=== PATIENT | female | born 1960 | race Caucasian/White ===

== ENCOUNTER → 2020-11-19 01:17 | Outpatient (CLI) | payer BC, SELFPAY ==
[2020-11-20 07:19] LABS: SARS-CoV-2 RNA PCR Negative
== END ==
PROVIDERS: PCP Internal Medicine; Visit Provider Internal Medicine
DX: Z20.822 Contact with and (suspected) exposure to COVID-19 (principal); R09.89 Other specified symptoms and signs involving the circulatory and respiratory systems
CPT/HCPCS: C9803; U0003; U0005

== ENCOUNTER 2021-04-29 08:24 | Outpatient (CLI) | payer BC, SELFPAY ==
--- NOTE | ~2021-04-29 | MM_ITS ---
EXAMINATION: MM screening [facility] BI w hollie HISTORY: Screening TECHNIQUE: Craniocaudal and mediolateral oblique 3-D tomosynthesis images were obtained and synthetic 2-D images were generated. CAD analysis was submitted and interpreted. COMPARISON: Comparison to multiple prior studies sequentially, with oldest reviewed study dated 02/2015. BREAST PARENCHYMAL COMPOSITION: There are scattered areas of fibroglandular density. FINDINGS: There is no evidence of suspicious mass, calcification, or architectural distortion to sugg est malignancy in either breast. There has been no suspicious interval change. IMPRESSION: 1. No mammographic evidence of malignancy. 2. Recommend routine screening mammography in one year. BI-RADS Category 1: Negative Reviewed, dictated and finalized at location A. TY COMP[employer]ION
== END 2021-04-29 08:25 | disposition home or self-care (01) ==
PROVIDERS: PCP Internal Medicine; Visit Provider Nurse Practitioner
DX: Z12.31 Encounter for screening mammogram for malignant neoplasm of breast (principal)
CPT/HCPCS: 77063; 77067

== ENCOUNTER 2022-04-09 17:28 | Emergency (ER) | payer OTHER, BC, SELFPAY ==
--- NOTE | ~2022-04-09 | XR_ITS ---
XR ankle RT min 3V 04/09/2022 18:05 Indication: Right ankle pain with swelling Procedure: 4 views right ankle Comparison: No prior studies for comparison. Findings: There is a minimally displaced transversely oriented distal fibular fracture. There is mode rate adjacent soft tissue swelling. Ankle mortise intact. There are degenerative calcaneal enthesophy erik. Talar dome is unremarkable. Osteopenia. Impression: 1: Mildly displaced distal fibular fracture, transversely oriented. Reviewed, dictated and finalized at location A. 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
[2022-04-09 17:43] VITALS: BP 157/104; PULSE 97; RESP 12; TEMP 36.8; O2SAT 98
--- NOTE | 2022-04-09 18:20 | ED.LOWEXIN ---
HPI - Extremity Injury (Lower) General Chief Complaint: Extremity Injury, Lower Stated Complaint: right ankle pain Time Seen by Provider: 04/09/22 18:09 Source: patient Mode of arrival: ambulatory Limitations: no limitations History of Present Illness HPI Narrative: Patient presents today complaining of right ankle pain. Patient states she stepped on to an approximately 3 in platform and felt a pop in her ankle around 3:30 p.m.. Denies numbness or tingling in the leg or foot. She is pain-free at rest, but this increases significantly with weight-bearing or movement. She has tried no medication or ice prior to arrival. Patient works at [employer] Medications Medication Instructions Recorded Confirmed multivitamin 1 tablet PO DAILY 01/02/19 04/09/22 aspirin 81 mg tablet,delayed 81 mg PO DAILY 01/04/19 04/09/22 release (Aspir-) Allergies Allergy/AdvReac Type Severity Reaction Status Date / Time No Known Allergies Allergy Verified 04/09/22 17:49 Review of Systems Review of Systems: CONSTITUTIONAL: Denies body aches, fever, chills, or sweats. EYES: Denies visual changes, redness, or discharge. ENT: Denies rhinorrhea, congestion, sore throat, or otalgia. CARDIOVASCULAR: Denies chest pain, palpitations, or edema. RESPIRATORY: Denies cough or dyspnea. GASTROINTESTINAL: Denies abdominal pain, nausea, vomiting, or diarrhea. GENITOURINARY: Denies dysuria or hematuria. SKIN: Denies rash, itching, or wounds. MUSCULOSKELETAL: Denies back pain, or myalgia.+ right ankle injury NEUROLOGIC: Denies headache, numbness, tingling, or weakness. PSYCH: Denies depression or anxiety. [facility] Past Medical History Medical History Asthma with acute exacerbation Chest pain Otitis of both ears Surgical History Surgical History S/P hysterectomy Family History Family History Mother Hypertension Family history of arthritis Family history of malignant neoplasm of thyroid Father Hypertension Grandparent Family history of malignant neoplasm of ovary Social History Social History Second hand tobacco smoke exposure: No Alcohol intake: current Alcohol use details: social Substance use: never Substance use type: does not use Comments At time of signature, I have reviewed and agree with nursing past medical, surgical, social and family history unless otherwise noted. Please see nursing chart for further information. There is no relevant family history pertinent to the presenting complaint Exam Narrative: GENERAL: Well-appearing, well-nourished, and in no acute distress. HEAD: Normocephalic, atraumatic. EYES: EOMI. No redness or drainage. Conjunctivae normal. ENT: Mucous membranes pink and moist. NECK: Normal AROM. CHEST: No respiratory distress. EXTREMITIES: Right ankle: Tenderness and mild to moderate edema to the lateral malleolus. No tenderness medially or posteriorly. No tenderness to the foot. Distal sensation intact in all 5 toes. Capillary refill normal. Pedal pulse normal. Almost full range of motion of the ankle with increased pain laterally. SKIN: Warm, dry, no rash. Capillary refill normal. Normal skin turgor. NEURO: No focal deficits. Alert and oriented x3. Gait steady but painful. PSYCH: Normal affect. No signs of depression or anxiety. Course Course Level of Care: Express Care Visit Vital Signs Vital signs: Vital Signs Temperature 98.2 F 04/09/22 17:43 Pulse Rate 97 04/09/22 17:43 Respiratory Rate 12 04/09/22 17:43 Blood Pressure 157/104 H 04/09/22 17:43 Pulse Oximetry 98 04/09/22 17:43 Oxygen Delivery Room Air 04/09/22 17:43 Temperature 98.2 F 04/09/22 17:43 Pulse Rate 97
== END 2022-04-09 19:24 | disposition home or self-care (01) ==
PROVIDERS: Emergency Provider Nurse Practitioner; PCP Family Medicine
DX: S82.831A Other fracture of upper and lower end of right fibula, initial encounter for closed fracture (principal); Z79.82 Long term (current) use of aspirin; X50.0XXA Overexertion from strenuous movement or load, initial encounter
CPT/HCPCS: 29515; 73610; 99214; G0463

== ENCOUNTER → 2022-07-28 16:03 | Outpatient (CLI) | payer BC, SELFPAY ==
--- NOTE | ~2022-07-28 | MM_ITS ---
EXAMINATION: MM screening [facility] BI w hollie HISTORY: Screening TECHNIQUE: Craniocaudal and mediolateral oblique 3-D tomosynthesis images were obtained and synthetic 2-D images were generated. CAD analysis was submitted and interpreted. COMPARISON: Comparison to multiple prior studies sequentially, with oldest reviewed study dated 02/2015. BREAST PARENCHYMAL COMPOSITION: There are scattered areas of fibroglandular density. FINDINGS: There is no evidence of suspicious mass, calcification, or architectural distortion to sugg est malignancy in either breast. There has been no suspicious interval change. IMPRESSION: 1. No mammographic evidence of malignancy. 2. Recommend routine screening mammography in one year. BI-RADS Category 1: Negative Reviewed, dictated and finalized at location A.
== END ==
PROVIDERS: PCP Family Medicine; Visit Provider Family Medicine
DX: Z12.31 Encounter for screening mammogram for malignant neoplasm of breast (principal)
CPT/HCPCS: 77063; 77067

== ENCOUNTER 2022-12-20 14:10 | Observation (INO) | payer BC, SELFPAY ==
[2022-12-20] VITALS (14 sets, daily range): BP systolic 118–166; BP diastolic 81–109; PULSE 81–94; RESP 16–20; TEMP 36.4–36.6; O2SAT 96–100; BMI 37.2
--- NOTE | ~2022-12-20 | NM_ITS ---
EXAMINATION: NM stress w perf spect multi DATE: 12/21/2022 14:17 INDICATION: Chest pain TECHNIQUE: Rest images were obtained following intravenous administration of 10.6 mCi Tc99m tetrofosm in ([employer]). The patient performed an exercise activity. At peak exercise, 30.6 mCi Tc99m tetrofosmi n ([employer]) was administered intravenously, and stress images were obtained. Data was reconstructed i nto short axis and horizontal and vertical long axis SPECT images. Gated SPECT images were also obtai shruthi. COMPARISON: None. FINDINGS: There is normal left ventricular perfusion without definite evidence of reversible or fixed perfusion abnormality to suggest ischemia or infarction. There is normal left ventricular chamber size, wall motion and ejection fraction. Left ventricular ejection fraction measures >70%. IMPRESSION: 1. Normal myocardial perfusion at rest and during stress. 2. Left ventricular ejection fraction measuring >70%. Reviewed, dictated and finalized at location A.
--- NOTE | ~2022-12-20 | XR_ITS ---
EXAMINATION: XR chest 1V DATE: 12/20/2022 14:28 INDICATION: Centralized chest pain. Regurgitation and cardiac valve. TECHNIQUE: frontal view of the chest was obtained. COMPARISON: Chest radiograph dated 05/10/2018 FINDINGS: The lungs remain clear with no focal airspace opacities, pulmonary edema, pleural effusion or pneumot horax. The cardiomediastinal silhouette is normal. Mild thoracic spondylosis. IMPRESSION: 1. No acute cardiopulmonary disease. Reviewed, dictated and finalized at location A.
--- NOTE | 2022-12-20 14:13 | ECG_ITS ---
Measurements Intervals [place] Rate: 86 P: 15 HI: 140 QRS: -36 QRSD: 113 T: 54 QT: 384 QTc: 461 Interpretive Statements SINUS RHYTHM WITH OCCASIONAL VENTRICULAR PREMATURE COMPLEXES MARKED LEFT AXIS DEVIATION [QRS AXIS < -30] MODERATE INTRAVENTRICULAR CONDUCTION DELAY [110+ ms QRS DURATION] MODERATE VOLTAGE CRITERIA FOR LVH, CONSIDER NORMAL VARIANT [MEETS CRITERIA IN ONE OF: R(aVL), S(V1), R(V5), R(V5/V6)+S(V1)] NONSPECIFIC T-WAVE ABNORMALITY NO PREVIOUS ECG AVAILABLE FOR COMPARISON Electronically Signed On 12-21-2022 11:22:17 CDT by Asha Rico M.D.
--- NOTE | 2022-12-20 14:14 | ED.GENADULT ---
HPI - General Adult General Chief complaint: Chest Pain Stated complaint: chest pain Time Seen by Provider: 12/20/22 15:08 History of Present Illness HPI narrative: Francy Yang is a 62 y/o female with reports of having mid sternal chest pain radiating to the mid back that has been off and on for 3 days. It lasted for about 2 hours on Tuesday and pt reports that it is hard to take a deep breath during the chest pain episode. She also reports that since Tuesday she has been getting very SOB with little exertion. Related Data Home Medications Medication Instructions Recorded Confirmed multivitamin 1 tablet PO DAILY 01/02/19 12/20/22 famotidine 20 mg tablet 20 mg PO HS 05/14/22 12/20/22 Adult Low Dose Aspirin 81 mg PO HS 12/20/22 12/20/22 montelukast 10 mg tablet 10 mg PO HS 12/20/22 12/20/22 niacin 500 mg tablet,extended 500 mg PO HS 12/20/22 12/20/22 release 24 hr pantoprazole 40 mg tablet,delayed 40 mg PO BID 12/20/22 12/20/22 release promethazine 6.25 mg/5 mL oral 6.25 mg PO DAILY PRN Cough 12/20/22 12/20/22 syrup Allergies Allergy/AdvReac Type Severity Reaction Status Date / Time No Known Allergies Allergy Verified 12/20/22 15:28 [facility] Past Medical History Medical History Gastroesophageal reflux disease Heart valve regurgitation Nonrheumatic mitral regurgitation a and aortic insufficiency. Hypertriglyceridemia Paroxysmal supraventricular tachycardia Valvular heart disease Surgical History Surgical History History of 3 sections History of cholecystectomy History of hysterectomy Status post laser ablation of incompetent vein Family History Family History Mother Family history of arthritis Family history of malignant neoplasm of thyroid Hypertension Father Hypertension Grandparent Family history of malignant neoplasm of ovary Social History Social History Social History: Surrogate medical decision maker: Martinez Yang, spouse. Code status: Full code. Smoking status: Never smoker Second hand tobacco smoke exposure: No Alcohol intake: current Drinks per week: 1 Alcohol use details: social Substance use: never Substance use type: does not use Lack of Transportation: No Lack of Food: Never True Current Housing: I Have Housing Concerned About Future Housing: No Difficulty Paying Gas/Electric Bills: No Difficulty Paying for Meds: No Currently Unemployed: No Education: Associate Degree Difficulty w/ Childcare or Family Care: No Additional living arrangements comments: Lives with spouse in [place]. 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 Spiritual care concerns: No Course Vital Signs Vital signs: Vital Signs Temperature 36.4 C 12/20/22 14:24 Pulse Rate 94 12/20/22 14:24 Respiratory Rate 16 12/20/22 14:24 Blood Pressure 147/103 H 12/20/22 14:24 Pulse Oximetry 97 12/20/22 14:24 Oxygen Delivery Room Air 12/20/22 14:24 Temperature 36.0 C L 12/21/22 16:00 Pulse Rate 84 12/21/22 18:00 Respiratory Rate 18 12/21/22 16:00 Blood Pressure 146/82 H 12/21/22 16:00 Pulse Oximetry 97 12/21/22 16:00 Oxygen Delivery Room Air 12/21/22 04:00 Medical Decision Making Vital Signs Vital Signs: Vital Signs Temperature 36.4 C 12/20/22 14:24 Pulse Rate 94 12/20/22 14:24 Respiratory Rate 16 12/20/22 14:24 Blood Pressure 147/103 H 12/20/22 14:24 Pulse Oximetry 97 12/20/22 14:24 Oxygen Delivery Room Air 12/20/22 14:24 Temperature 36.0 C L 12/21/22 16:00 Pulse Rate 84 12/21/22 18:00 Respiratory Rate 18 12/21/22 16:00 Blood Pressure 146/82 H 12/21/22 16:00 Pulse Oximetry 97 12/21/22 16:00 Oxygen Delivery Room
[2022-12-20 14:40] LABS: Basophils Percent Auto 0.3 % (0.2-1.2); Eosinophils Absolute Auto 0.1 K/mm3 (0-0.3); Eosinophils Percent Auto 1.2 % (0-4.4); Hematocrit 43.2 % (37.0-47.0); Hemoglobin 13.8 g/dL (12.0-15.0); Immature Granulocyte Absolute 0.03 K/mm3 (0.00-0.031); Immature Granulocyte Percent A 0.4 % (0-0.5); Lymphocytes Absolute Auto 2.58 K/mm3 (0.9-3.2); Lymphocytes Percent Auto 38.2 % (18.3-44.2); Mean Corpuscular HGB Conc 31.9 g/dl (32-36); Mean Corpuscular Hemoglobin 29.9 pg (26-34); Mean Corpuscular Volume 93.7 fl (80-100); Mean Platelet Volume 11.5 fl (7.4-10.4); Monocytes Absolute Auto 0.5 K/mm3 (0.1-0.6); Monocytes Percent Auto 7.3 % (2.6-8.5); Neutrophils Absolute Auto 3.6 K/mm3 (1.3-6.7); Neutrophils Percent Auto 52.6 % (45.5-73.1); Platelet Count Result 231 k/mm3 (150-375); Red Blood Count 4.61 M/mm3 (4.2-5.4); White Blood Count 6.8 K/mm3 (4.5-10.0)
[2022-12-20 14:59] LABS: Alanine Aminotransferase 22 U/L (6-35); Albumin Level 4.4 g/dL (3.5-5.1); Alkaline Phosphatase 88 U/L (38-126); Anion Gap 9 mmol/L (8-16); Aspartate Amino Transferase 31 U/L (14-36); Bilirubin,Total 0.5 mg/dL (0.2-1.3); Blood Urea Nitrogen 12 mg/dL (7-17); Calcium 9.4 mg/dL (8.4-10.2); Carbon Dioxide 26 mmol/L (22-30); Chloride 103 mmol/L (98-107); Estimated Glomerular Filt Rate > 60; Glucose 154 mg/dL (65-110); Potassium 3.4 mmol/L (3.4-5.0); Sodium 138 mmol/L (137-145)
[2022-12-20 15:00] LABS: D Dimer 0.45 ug/mL (<0.48)
--- NOTE | 2022-12-20 15:08 | ED.CHESTPAIN ---
HPI - Chest Pain General Chief Complaint: Chest Pain Stated Complaint: chest pain Time Seen by Provider: 12/20/22 15:08 Source: patient and family Mode of arrival: ambulatory Limitations: no limitations History of Present Illness HPI narrative: 62 years old white female referred to our emergency room by Dr. Cornell office because of active chest pain. Patient went see Dr. Maloney today because been having intermittent retrosternal chest pain radiating all the way to the back started 4 days ago. Worse with any activities. Patient ran out of breath with slight activities. Gets better at rest. History of hyperlipidemia, intermittent SVT, valvular regurgitation. History of cholecystectomy, hysterectomy, section x2 currently on aspirin. No family history of coronary artery disease. She does not smoke she drinks occasionally denied any marijuana use. Currently her pain is less than 1 out of 10. Related Data Home Medications Medication Instructions Recorded Confirmed multivitamin 1 tablet PO DAILY 01/02/19 06/21/22 aspirin 81 mg tablet,delayed 81 mg PO DAILY 01/04/19 06/21/22 release (Aspir-) famotidine 20 mg tablet 20 mg PO DAILY 05/14/22 06/21/22 Allergies Allergy/AdvReac Type Severity Reaction Status Date / Time No Known Allergies Allergy Verified 12/20/22 15:28 Review of Systems Review of Systems: All systems reviewed & are unremarkable except as noted in HPI and below PMFSH Past Medical History Medical History Asthma with acute exacerbation Chest pain Heart valve regurgitation Otitis of both ears Sleep apnea SVT (supraventricular tachycardia) Surgical History Surgical History History of 3 sections History of cholecystectomy S/P hysterectomy Family History Family History Mother Hypertension Family history of arthritis Family history of malignant neoplasm of thyroid Father Hypertension Grandparent Family history of malignant neoplasm of ovary Social History Social History Smoking status: Never smoker Second hand tobacco smoke exposure: No Alcohol intake: current Alcohol use details: social Substance use: never Substance use type: does not use Lack of Transportation: No Lack of Food: Never True Current Housing: I Have Housing Concerned About Future Housing: No Difficulty Paying Gas/Electric Bills: No Difficulty Paying for Meds: No Currently Unemployed: No Education: Associate Degree Difficulty w/ Childcare or Family Care: No Exam Narrative: General appearance: Well-developed, well-nourished Skin: Normal color Head: Normocephalic, nontraumatic Eyes: Clear conjunctiva ENT: Oropharynx normal, ears normal, nose normal Neck: Supple, nontender Chest and respiratory: Airway patent, no respiratory distress, no accessory muscle use slight tenderness of the sternum, no bruises, no swelling or rash Heart: Regular rate/rhythm Abdomen: Soft, nontender, no organomegaly, quiet bowel sounds Vascular: Normal peripheral pulses, normal capillary refill. 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 Orr/[place] Date: 12/20/22 Time: 15:25 Vital Signs Vital signs: Vital Signs Temperature 36.4 C 12/20/22 14:24 Pulse Rate 94 12/20/22 14:24 Respiratory Rate 16 12/20/22 14:24 Blood Pressure 147/103 H
[2022-12-20 15:10] LABS: NT Pro B Type Natriuretic Pept 54 pg/mL (19.9-100); Troponin I < 0.012 ng/mL (0.000-0.034)
[2022-12-20 15:27] LABS: INR 0.9; Prothrombin Time 12.7 Seconds (11.1-14.7)
[2022-12-20 15:28] LABS: Partial Thromboplastin Time 24.6 SECONDS (22.3-36.8)
[2022-12-20] MEDS: ASPIRIN 81 MG CHEWABLE TABLET 324 MG PO (15:32)
[2022-12-20 18:03] LABS: Troponin I < 0.012 ng/mL (0.000-0.034)
--- NOTE | 2022-12-20 19:15 | PC.NURSE ---
Assumed care of pt from LM Stuart at this time.
--- NOTE | 2022-12-20 19:20 | PM.IMHP ---
H&P: HPI History of Present Illness Date/Time: 12/20/22 19:30 Chief Complaint: Chest pain. Narrative: This is a pleasant 62-year-old female with paroxysmal supraventricular tachycardia, nonrheumatic mitral valve regurgitation and aortic valve insufficiency, hypertriglyceridemia, and gastroesophageal reflux disease who presented to the emergency department from Dr. Orr's office for evaluation of chest pain. The patient provides the following history. This past Tuesday she was out shopping when she developed substernal chest pain described as a heaviness. On occasion it felt as though it was radiating through to the back. Symptoms persisted for couple of hours and started to resolve when she got home and sat down. On Tuesday she had recurrent symptoms with activity and she started to have feelings of shortness of breath with the chest heaviness. Her symptoms would improve each time with rest. She made an appointment with Dr. Orr today and given concerns for recurrent angina she was sent to the ED. She denies syncope, near syncope, pleuritic pain, palpitations, sensations of racing heart, nausea, vomiting, and sweats. Her vital signs were stable on arrival to the emergency department. Initial troponin, proBNP, and D-dimer were all normal. EKG showed a sinus rhythm with occasional ectopy, marked left axis deviation, and nonspecific T-wave abnormalities. She is being admitted in this setting for close monitoring and Cardiology consultation at the time my evaluation she is resting comfortably and is not having any symptoms. Review of Systems Review of Systems: Twelve systems were reviewed and are negative except for as per HPI. [facility] Past Medical History Medical History (Updated 12/20/22 @ 23:41 by Swapna Simmons PA-C) Gastroesophageal reflux disease Heart valve regurgitation Nonrheumatic mitral regurgitation a and aortic insufficiency. Hypertriglyceridemia Paroxysmal supraventricular tachycardia Valvular heart disease Surgical History Surgical History (Updated 12/20/22 @ 23:38 by Swapna Simmons PA-C) History of 3 sections History of cholecystectomy History of hysterectomy Status post laser ablation of incompetent vein Family History Family History Mother Family history of arthritis Family history of malignant neoplasm of thyroid Hypertension Father Hypertension Grandparent Family history of malignant neoplasm of ovary Social History Social History (Updated 12/20/22 @ 23:39 by Swapna Simmons PA-C) Social History: Surrogate medical decision maker: Martinez Yang, spouse. Code status: Full code. Smoking status: Never smoker Second hand tobacco smoke exposure: No Alcohol intake: current Drinks per week: 1 Alcohol use details: social Substance use: never Substance use type: does not use Lack of Transportation: No Lack of Food: Never True Current Housing: I Have Housing Concerned About Future Housing: No Difficulty Paying Gas/Electric Bills: No Difficulty Paying for Meds: No Currently Unemployed: No Education: Associate Degree Difficulty w/ Childcare or Family Care: No Additional living arrangements comments: Lives with spouse in [place]. 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
--- NOTE | 2022-12-20 20:19 | ADMGEN ---
This patient, Francy Yang, was admitted to IMU Room 203-01. Patient/family oriented to hospital policies and general routines including ID bracelet, bed and alarms, visiting hours, pain management, procedures, bathroom and other care routines, personal items, smoking policy, room service/diet, and visiting hours. Information on how to activate the Rapid Response Team has been discussed. Patient/Family are encouraged to report perceived risks to care and to ask questions if they do not understand what they are told or what they should do.
[2022-12-20 21:56] LABS: Troponin I < 0.012 ng/mL (0.000-0.034)
[2022-12-21] VITALS (12 sets, daily range): BP systolic 130–163; BP diastolic 75–98; PULSE 72–94; RESP 16–20; TEMP 36–36.5; O2SAT 95–100
--- NOTE | 2022-12-21 | EST_ITS ---
Patient Info Name: Francy Yang Age: 62 years : 1960 Gender: Female Ht: 64 in Wt: 216 lbs BSA: 2.15 m2 HR: 75 bpm BP: 122 / 92 mmHg Exam Date: 12/21/2022 1:12 PM Exam Location: Echo Lab Patient Status: Inpatient Admit Date: 12/20/2022 Staff Ordering Physician: Asha Rico MD Attending Provider: SHABNAM NAVAS NP Exercise Technologist: Chelsey Dutton, CT Nurse: Shabnam Navas APN Exam Type: CA stress test treadmill w NM Study Info Indications R06.00 - Dyspnea, unspecified R07.9 - Chest pain, unspecified A nuclear stress test was performed. Summary 1. Exercise capacity fair to good at 6-10 METS[address] 2[address] No abnormal ST/T wave changes diagnostic of ischemia with exercise. 3. Occasional PVCs. 4. Please correlate with nuclear medicine images, reported separately. 5. Stress test supervised by Shabnam Navas NP. Stress test interpreted by Asha Rico MD. Protocol: Vitaliy Stress ECG Details Stage: REST Duration (min): 1 min : 3 sec Speed (mph): 0.0 Grade (%): 0 HR (bpm): 76 SBP (mmHg): 122 DBP (mmHg): 92 METS: --- Stage: REST Duration (min): 16 min : 37 sec Speed (mph): 0.0 Grade (%): 0 HR (bpm): 85 SBP (mmHg): 122 DBP (mmHg): 92 METS: --- Stage: STAGE 1 Duration (min): 1 min : 0 sec Speed (mph): 1.7 Grade (%): 10 HR (bpm): 102 SBP (mmHg): 122 DBP (mmHg): 92 METS: --- Stage: STAGE 1 Duration (min): 2 min : 0 sec Speed (mph): 1.7 Grade (%): 10 HR (bpm): 114 SBP (mmHg): 122 DBP (mmHg): 92 METS: --- Stage: STAGE 1 Duration (min): 3 min : 0 sec Speed (mph): 1.7 Grade (%): 10 HR (bpm): 120 SBP (mmHg): 143 DBP (mmHg): 104 METS: --- Stage: STAGE 2 Duration (min): 1 min : 0 sec Speed (mph): 2.5 Grade (%): 12 HR (bpm): 129 SBP (mmHg): 143 DBP (mmHg): 104 METS: --- Stage: STAGE 2 Duration (min): 2 min : 0 sec Speed (mph): 2.5 Grade (%): 12 HR (bpm): 136 SBP (mmHg): 143 DBP (mmHg): 104 METS: --- Stage: STAGE 2 Duration (min): 2 min : 40 sec Speed (mph): 2.5 Grade (%): 12 HR (bpm): 139 SBP (mmHg): 143 DBP (mmHg): 104 METS: --- Stage: RECOVERY Duration (min): 0 min : 19 sec Speed (mph): 0.0 Grade (%): 0 HR (bpm): 139 SBP (mmHg): 143 DBP (mmHg): 104 METS: --- Stage: RECOVERY Duration (min): 1 min : 19 sec Speed (mph): 0.0 Grade (%): 0 HR (bpm): 119 SBP (mmHg): 170 DBP (mmHg): 87 METS: --- Stage: RECOVERY Duration (min): 2 min : 19 sec Speed (mph): 0.0 Grade (%): 0 HR (bpm): 102 SBP (mmHg): 170 DBP (mmHg): 87 METS: --- Stage: RECOVERY Duration (min): 3 min : 9 sec Speed (mph): 0.0 Grade (%): 0 HR (bpm): 96 SBP (mmHg): 166 DBP (mmHg): 93 METS: --- Rest HR: 85 bpm Peak HR: 139 bpm Rest Sys BP: 122 mmHg Peak Sys BP: 170 mmHg Max Pred HR: 159 bpm % Max Pred HR: 87 % Target HR: 135 bpm Max RPP: 23,630 bpm*mmHg Beard Score: 2 Target HR Stone
[2022-12-21] MEDS: MONTELUKAST SODIUM 10 MG TABLET PO (00:13)
[2022-12-21] MEDS: FAMOTIDINE 20 MG TABLET PO (00:13)
[2022-12-21] MEDS: NIACIN SA 500 MG TABLET PO (00:14)
[2022-12-21 05:01] LABS: Hematocrit 39.4 % (37.0-47.0); Hemoglobin 12.8 g/dL (12.0-15.0); Mean Corpuscular HGB Conc 32.5 g/dl (32-36); Mean Corpuscular Hemoglobin 30.4 pg (26-34); Mean Corpuscular Volume 93.6 fl (80-100); Mean Platelet Volume 11.4 fl (7.4-10.4); Platelet Count Result 193 k/mm3 (150-375); Red Blood Count 4.21 M/mm3 (4.2-5.4); Red Cell Distribution Width 13.1 % (11.5-14.5); White Blood Count 5.5 K/mm3 (4.5-10.0)
[2022-12-21 05:13] LABS: Anion Gap 4 mmol/L (8-16); Blood Urea Nitrogen 19 mg/dL (7-17); Calcium 9.1 mg/dL (8.4-10.2); Carbon Dioxide 28 mmol/L (22-30); Chloride 104 mmol/L (98-107); Estimated CRCL calculation 95 ml/min; Estimated Glomerular Filt Rate > 60; Glucose 97 mg/dL (65-110); Magnesium 2.2 mg/dL (1.6-2.3); Potassium 3.9 mmol/L (3.4-5.0); Sodium 136 mmol/L (137-145)
[2022-12-21] MEDS: MULTIVITAMINS THERAPEUTIC TAB (*BKC) 1 TABLET PO (08:26)
[2022-12-21] MEDS: ASPIRIN 81 MG CHEWABLE TABLET PO (08:26)
[2022-12-21] MEDS: PANTOPRAZOLE 40 MG TABLET PO (08:26)
--- NOTE | 2022-12-21 10:14 | PM.CNCAR ---
Assessment and Plan Assessment and plan (1) Chest pain: Code(s): R07.9 - Chest pain, unspecified Status: Acute Assessment and Plan: Troponins negative x 3, EKG without ischemic changes, CXR without acute findings. Will obtain treadmill nuclear stress test. (2) Hypertension: Code(s): I10 - Essential (primary) hypertension Status: Acute Assessment and Plan: Has had elevated blood pressures recently. As high as 180s systolics at home, up to 160s systolics here while in the hospital. Will likely need antihypertensive agents. Await stress test first prior to starting antihypertensive. History of Present Illness History of Present Illness Consult date/time: 12/21/22 10:14 Requesting physician: Gwyn Castillo MD Consult reason: chest pain Reason For Visit: Chest Pain/Dyspnea on Exertion Narrative: We are consulted for chest pain. This is a pleasant 62 year old female who follows with Dr. Orr. She has PSVT, mild-moderate AI, asthma, obesity who was sent from Dr. Orr's clinic to the ER for chest pain evaluation. Patient states that on Tuesday last week, she was grocery shopping when she developed substernal chest pain that worsened as she continued her activity. Went home and rested with eventual resolution of chest pain. Chest pain that day lasted for about 2 hours. On Tuesday, she had shortness of breath with exertion. On Tuesday, she had shortness of breath with exertion as well. Tuesday evening she had intermittent chest pain that lasted for about 5 minutes or so. On Tuesday she made an urgent appointment with Dr. Orr in clinic, and had chest pain during her visit with him. Therefore, patient sent to the ED from clinic. Patient reports that her son is a investigations consultant and had her blood pressure checked over the weekend and it was as high as the 180s systolics. ER workup showed troponins negative x 3, EKG without ischemic changes, CXR without acute findings. Patient states since being in the hospital, she hasn't had recurrence of chest pain. Walking from hospital bed to bathroom and did okay with that. Review of Systems Review of Systems: All systems reviewed & are unremarkable except as noted in HPI and below (HPI) PMFSH Past Medical History Medical History Gastroesophageal reflux disease Heart valve regurgitation Nonrheumatic mitral regurgitation a and aortic insufficiency. Hypertriglyceridemia Paroxysmal supraventricular tachycardia Valvular heart disease Surgical History Surgical History History of 3 sections History of cholecystectomy History of hysterectomy Status post laser ablation of incompetent vein Family History Family History Mother Family history of arthritis Family history of malignant neoplasm of thyroid Hypertension Father Hypertension Grandparent Family history of malignant neoplasm of ovary Social History Social History Social History: Surrogate medical decision maker: Martinez Yang, spouse. Code status: Full code. Smoking status: Never smoker Second hand tobacco smoke exposure: No Alcohol intake: current Drinks per week: 1 Alcohol use details: social Substance use: never Substance use type: does not use Lack of Transportation: No Lack of Food: Never True Current Housing: I Have Housing Concerned About Future Housing: No Difficulty Paying Gas/Electric Bills: No Difficulty Paying for Meds: No Currently Unemployed: No Education: Associate Degree Difficulty w/ Childcare or Family Care: No Additional living arrangements comments: Lives with spouse in [place]. 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
--- NOTE | 2022-12-21 12:37 | PC.NURSE ---
1205 to [facility] for test via w/c
--- NOTE | 2022-12-21 18:38 | PM.DS ---
DS: Admitting Diagnosis Discharge Date 12/21/22 Admitting Diagnosis chest pain DS: Discharge Diagnosis Discharge Diagnosis Plan 1. cp resolved 3 neg trop's stress test, neg, ekg, only had pvc's 2. HTN still hypertensive here Will start metop tartrate 25 mg bid FINDINGS: There is normal left ventricular perfusion without definite evidence of reversible or fixed perfusion abnormality to suggest ischemia or infarction.? There is normal left ventricular chamber size, wall motion and ejection fraction.? Left ventricular ejection fraction measures >70%. IMPRESSION: 1. Normal myocardial perfusion at rest and during stress. 2. Left ventricular ejection fraction measuring >70%. Summary ? 1. Exercise capacity fair to good at 6-10 METS. ? 2. No abnormal ST/T wave changes diagnostic of ischemia with exercise. ? 3. Occasional PVCs. ? 4. Please correlate with nuclear medicine images, reported separately. ? 5. Stress test supervised by Opal Hernandes NP. Stress test interpreted by Asha Rico MD. DS: Summary Hospital Course Reason for hospitalization: chest pain Hospital Course: This is a pleasant 62 year old female who follows with Dr. Orr. She has PSVT, mild-moderate AI, asthma, obesity who was sent from Dr. Orr's clinic to the ER for chest pain evaluation. Patient states that on Tuesday last week, she was grocery shopping when she developed substernal chest pain that worsened as she continued her activity. Went home and rested with eventual resolution of chest pain. Chest pain that day lasted for about 2 hours. On Tuesday, she had shortness of breath with exertion. On Tuesday, she had shortness of breath with exertion as well. Tuesday evening she had intermittent chest pain that lasted for about 5 minutes or so. On Tuesday she made an urgent appointment with Dr. Orr in clinic, and had chest pain during her visit with him. Therefore, patient sent to the ED from clinic. Patient reports that her son is a barrel builder and had her blood pressure checked over the weekend and it was as high as the 180s systolics. ER workup showed troponins negative x 3, EKG without ischemic changes, CXR without acute findings. Patient states since being in the hospital, she hasn't had recurrence of chest pain. Walking from hospital bed to bathroom and did okay with that. (1) Chest pain: ?Code(s): R07.9 - Chest pain, unspecified ?Status:?Acute ?Assessment and Plan: Troponins negative x 3, EKG without ischemic changes, CXR without acute findings. Will obtain treadmill nuclear stress test. (2) Hypertension: ?Code(s): I10 - Essential (primary) hypertension ?Status:?Acute ?Assessment and Plan: Has had elevated blood pressures recently. As high as 180s systolics at home, up to 160s systolics here while in the hospital. Will likely need antihypertensive agents. Await stress test first prior to starting antihypertensive. Gastroesophageal reflux disease Heart valve regurgitation Nonrheumatic mitral regurgitation a and aortic insufficiency.Hypertriglyceridemia Paroxysmal supraventricular tachycardia Valvular heart disease Status at Discharge Cognitive/behavioral status at discharge: Normal Time Spent with Patient Time attestation: Total time spent providing and/or coordinating discharge services: 30 min Exam Narrative: General:?Well-developed, nontoxic-appearing female sitting up in bed. Weight: 98.4 kg.? BMI: 37.2. HEENT:??Normocephalic, atraumatic.? PERRL, EOMI. Sclera anicteric.? Oral mucosa moist.? Oropharynx clear. Neck:??Supple. Respiratory:?Lungs are clear to auscultation bilaterally. Cardiovascular:??Regular rate and rhythm with S1-S2. Soft systolic murmur at the apex. Chest:?No tenderness to palpation over the chest wall. Gastrointestinal:??Abdomen is soft, nontender, and nondistended with positive bowel sounds. No organomegaly. Skin:??Warm and dry.? No rash or lesions on limited exam. Extremities:??No cyanosis, club
== END 2022-12-21 18:59 | disposition home or self-care (01) ==
LOC: ANHED 15:27 → ANHIMU 19:44
PROVIDERS: Nurse Practitioner Family; Physician Assistant; Admitting Provider Internal Medicine; Emergency Provider Emergency Medicine; PCP Family Medicine; Visit Provider Internal Medicine
DX: R07.9 Chest pain, unspecified (principal); I10 Essential (primary) hypertension; I47.10 Supraventricular tachycardia, unspecified; I08.0 Rheumatic disorders of both mitral and aortic valves; K21.9 Gastro-esophageal reflux disease without esophagitis; E78.1 Pure hyperglyceridemia; G47.33 Obstructive sleep apnea (adult) (pediatric); R94.31 Abnormal electrocardiogram [ECG] [EKG]; E78.5 Hyperlipidemia, unspecified; E66.9 Obesity, unspecified; Z68.37 Body mass index [BMI] 37.0-37.9, adult; J45.909 Unspecified asthma, uncomplicated; F10.90 Alcohol use, unspecified, uncomplicated; Z79.82 Long term (current) use of aspirin; Z79.899 Other long term (current) drug therapy
CPT/HCPCS: 36415; 71045; 78452; 80048; 80053; 83735; 83880; 84484; 85025; 85027; 85380; 85610; 85730; 93005; 93017; 99285; A9270; A9502; G0378

== ENCOUNTER 2023-08-04 15:33 | Outpatient (CLI) | payer BC, SELFPAY ==
--- NOTE | ~2023-08-04 | MM_ITS ---
EXAMINATION: MM screening ivan BI w hollie HISTORY: Screening TECHNIQUE: Craniocaudal and mediolateral oblique 3-D tomosynthesis images were obtained and synthetic 2-D images were generated. CAD analysis was submitted and interpreted. COMPARISON: Comparison to multiple prior studies sequentially, with oldest reviewed study dated 02/2015. BREAST PARENCHYMAL COMPOSITION: Not dense: There are scattered areas of fibroglandular density. FINDINGS: There is no evidence of suspicious mass, calcification, or architectural distortion to sugg est malignancy in either breast. There has been no suspicious interval change. IMPRESSION: 1. No mammographic evidence of malignancy. 2. Recommend routine screening mammography in one year. BI-RADS Category 1: Negative Reviewed, dictated and finalized at location B.
== END 2023-08-04 15:34 ==
LOC: MICIMG 15:33
PROVIDERS: PCP Family Medicine; Visit Provider Family Medicine
DX: Z12.31 Encounter for screening mammogram for malignant neoplasm of breast (principal)
CPT/HCPCS: 77063; 77067

== ENCOUNTER 2024-08-10 15:34 | Outpatient (CLI) | payer BC, SELFPAY ==
--- NOTE | ~2024-08-10 | MM_ITS ---
EXAMINATION: MM screening ivan BI w hollie HISTORY: Screening TECHNIQUE: Craniocaudal and mediolateral oblique 3-D tomosynthesis images were obtained and synthetic 2-D images were generated. CAD analysis was submitted and interpreted. COMPARISON: Comparison to multiple prior studies sequentially, with oldest reviewed study dated 02/2015. BREAST PARENCHYMAL COMPOSITION: Not dense: There are scattered areas of fibroglandular density. FINDINGS: There is no evidence of suspicious mass, calcification, or architectural distortion to sugg est malignancy in either breast. There has been no suspicious interval change. IMPRESSION: 1. No mammographic evidence of malignancy. 2. Recommend routine screening mammography in one year. BI-RADS Category 1: Negative Reviewed, dictated and finalized at location A.
== END 2024-08-10 15:35 | disposition home or self-care (01) ==
LOC: MICIMG 15:34
PROVIDERS: PCP Family Medicine; Visit Provider Family Medicine
DX: Z12.31 Encounter for screening mammogram for malignant neoplasm of breast (principal)
CPT/HCPCS: 77063; 77067